=== PATIENT | female | born 1955 | race Caucasian/White ===

== ENCOUNTER → 2016-10-16 | Day surgery (SDC) | payer OTHER ==
[~2016-10-16] MED LIST: APREPITANT 40 MG CAP ONE; BUPIVACAINE/EPINEPHRINE 0.5% PF 30 ML VIAL ONE; CLINDAMYCIN PHOS 600 MG/4 ML VIAL ONE; LACTATED RINGER'S 1000 ML INJ 1,000 ML ONE; MIDAZOLAM HCL 2 MG/2 ML VIAL ONE; ONDANSETRON HCL 4 MG/2 ML VIAL IV PUSH ONE; PROPOFOL 200 MG/20 ML AMP IV ONE
--- NOTE | 2016-10-16 16:07 | TN ---
cc: VIOLET NICHOLS M.D. DATE OF SURGERY: 10/16/2016. PREOPERATIVE DIAGNOSIS: 1. Internal derangement of the right knee. 2. Probable medial and lateral meniscus tear right knee. POSTOPERATIVE DIAGNOSIS: 1. Complex tear of medial and posterior medial meniscus. 2. Degenerative tear of the lateral meniscus. OPERATIVE PROCEDURE PERFORMED: 1. Arthroscopy of the right knee. 2. Arthroscopic medial and lateral meniscectomy. 3. Abrasion chondroplasty medial femoral condyle and lateral tibial plateaus. SURGEON: Violet Nichols MD. ANESTHESIA: General. ESTIMATED BLOOD LOSS: Minimal. INDICATIONS FOR THE PROCEDURE: This patient is a 61-year-old female who fell approximately six weeks ago. She has been having catching, locking and significant pain in her right knee. Studies show evidence of a tear of the medial meniscus and a possible tear of the lateral meniscus. She presents for surgical treatment. DESCRIPTION OF THE PROCEDURE IN DETAIL: The patient was brought to the operating room and anesthetized in the supine position. The right leg was scrubbed alcohol followed by Hibiclens followed Chloraprep and draped sterilely. Antibiotics were given within a one hour time window and a time-out was done. Inflow was established anterior and laterally. The knee was inflated. The suprapatellar pouch was unremarkable. The retropatellar surface showed grade II and III changes. No loose bodies were seen in the lateral or medial gutters. The medial compartment showed a complete tear of the posterior medial meniscus extending to the posterior horn. There was grade II and III changes of the medial compartment. The ACL was normal. There was significant synovitis adjacent to the lateral meniscus. There is a degenerative tear of lateral meniscus at approximately the nine o'clock position to the twelve o'clock position. As a spinal needle was introduced along medial joint line. A separate incision was made. Straight and angled punches were used take the meniscus back to a stable rim. The fragments floated free the joint. A synovectomy was performed in the notch in the region of the footprint of the anterior cruciate ligament and adjacent to the lateral meniscus. The lateral meniscus was taken back from the nine o'clock position to the posterior horn. There was an area of loose articular cartilage that had a flap of loose cartilage which was also debrided. The wound was irrigated copiously. Hemostasis was controlled. Other fragments were floated free from the joint. The portals were anesthetized with 0.5% Marcaine with epinephrine and closed with Steri-Strips and Benzoin. A sterile dressing was applied. The patient was awakened and taken to the to recovery room in satisfactory condition. MD ANTONIA Mcdaniel/MARCELA /3:34 PM /4:01 PM MTDSunil
== END | disposition home or self-care (01) ==
LOC: ESDC 13:18
PROVIDERS: ATTEND Orthopaedic Surgery Orthopaedic Surgery of the Spine
DX: S83.231A Complex tear of medial meniscus, current injury, right knee, initial encounter (principal); S83.281A Other tear of lateral meniscus, current injury, right knee, initial encounter
CPT/HCPCS: 01400; 29880; J2250; J2405; J3010; J7120; J8501